=== PATIENT | male | born 1945 ===

== ENCOUNTER 2020-10-18 08:00 | Outpatient (CLI) | payer OTHER ==
[2020-10-18] MEDS ORDERED: CETI5TAB3 PO (11:01)
[2020-10-18] MEDS ORDERED: MULT-449 PO (11:01)
[2020-10-18] MEDS ORDERED: IBUP-1222 PO (11:01)
[2020-10-18] MEDS ORDERED: ATOR20TA37 PO (11:01)
[2020-10-18] MEDS ORDERED: TAMS-11 PO (11:01)
[2020-10-18] MEDS ORDERED: PSYL1POW PO (11:01)
[2020-10-18] MEDS ORDERED: PREG150C PO (11:01)
[2020-10-18] MEDS ORDERED: HYDR25TA6 PO (11:01)
[2020-10-18] MEDS ORDERED: CALC-780 PO (11:01)
[2020-10-18] MEDS ORDERED: PANT40TA6 PO (11:01)
[2020-10-18] MEDS ORDERED: CYAN-27 PO (11:01)
== END 2020-10-18 23:59 | disposition home or self-care (01) ==
LOC: STAR 08:00
PROVIDERS: ATTEND Orthopaedic Surgery
DX: Z01.812 Encounter for preprocedural laboratory examination (principal); Z20.822 Contact with and (suspected) exposure to COVID-19; T84.52XA Infection and inflammatory reaction due to internal left hip prosthesis, initial encounter; T84.84XA Pain due to internal orthopedic prosthetic devices, implants and grafts, initial encounter; Z96.642 Presence of left artificial hip joint; X58.XXXA Exposure to other specified factors, initial encounter
CPT/HCPCS: 36415; 80053; 83036; 85025; 85610; 85730; 87081; U0003; U0005